=== PATIENT | male | born 2005 | race Caucasian/White ===

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

== ENCOUNTER → 2025-01-13 | Outpatient (CLI) | payer OTHER, SELFPAY ==
[2025-01-13 10:43] LABS: Hematocrit 43.6 % (40-54); Hemoglobin 15.4 g/dL (13.0-16.5); Immature Granulocytes Count 0.010 X10^3/uL (0.0-0.0); Mean Corp Hgb Conc 35.3 g/dL (32-36); Mean Corpuscular Volume 86.2 fL (80-94); Mean Platelet Vol. 10.2 fl (6.2-12.0); NRBC Flagged by Analyzer 0 % (0-5); Platelet Count 225 K/mm3 (150-450); RBC Distribution Width CV 12.3 % (11.6-14.6); RBC Distribution Width SD 38.3 fl (35.1-43.9); Red Blood Count 5.06 M/mm3 (4.6-6.2); White Blood Count 4.0 K/mm3 (4.4-11.0)
[2025-01-13 11:21] LABS: AST(SGOT) 20 U/L (<=37); Alanine Aminotransfer ALT/SGPT 17 U/L (<=46); Albumin, Serum 4.7 g/dL (3.5-5.0); Alkaline Phosphatase 70 U/L (40-129); Anion Gap 13 (5-15); BUN 14 mg/dL (4-19); BUN/Creat Ratio 15.3 RATIO (10-20); Calcium,Total 9.7 mg/dL (7.6-11.0); Carbon Dioxide 26.0 mmol/L (21.0-32.0); Chloride 103 mmol/L (98-108); Globulin 2.3 g/dL (2.2-4.2); Glucose 89 mg/dL (70-99); Potassium 4.1 mmol/L (3.3-5.1)
[2025-01-16 16:08] LABS: Thyroglobulin, Serum Qt. 7.8 ng/mL (1.4-29.2); Thyroid Stim Immunoglob <0.10 IU/L (0.00-0.55)
== END | disposition home or self-care (01) ==
LOC: MFPLAB 08:39
PROVIDERS: PCP Family Medicine; Referring Provider Family Medicine; Visit Provider Family Medicine
DX: E01.0 Iodine-deficiency related diffuse (endemic) goiter (principal)
CPT/HCPCS: 36415; 80053; 84432; 84439; 84443; 84445; 85025; 86376; 86800

== ENCOUNTER → 2025-02-08 | Outpatient (CLI) | payer OTHER, SELFPAY ==
--- NOTE | 2025-02-08 11:45 | US_ITS ---
PROCEDURE: THYROID 02/08/2025 REASON FOR EXAM: THYROMEGALY TECHNIQUE: THYROID COMPARISON: None FINDINGS: Right thyroid lobe size: 4.8 cm x 1.6 cm 1.6 cm Left thyroid lobe size: 4.7 cm x 1.7 cm 1.6 cm Isthmus: 0.5 cm Background parenchymal echotexture is homogeneous. Nodules: No nodules are seen. US/Thyroid IMPRESSION: Unremarkable sonogram of the thyroid gland. RECOMMENDATION: Based on most suspicious nodule. Nodule size = largest diameter Only evaluate nodule if =>5 mm. Growth > 20% in 2 dimensions = worsening. Follow up to 4 nodules. Recommend biopsy for no more than 2 nodules. Reading Location: [place] [id number]
== END | disposition home or self-care (01) ==
LOC: US 11:45
PROVIDERS: PCP Family Medicine; Referring Provider Family Medicine; Visit Provider Family Medicine
DX: E01.0 Iodine-deficiency related diffuse (endemic) goiter (principal)
CPT/HCPCS: 76536